=== PATIENT | female | born 1970 | race Caucasian/White ===

== ENCOUNTER 2018-08-20 15:14 | Emergency (ER) | payer OTHER ==
[~2018-08-20] VITALS: Ht 157.4 cm; Wt 45.4 kg
[~2018-08-20 15:14] MED LIST: ATARAX25 MG PO; CYMBALTA30 MG PO; DIAZEPAM10 MG PO; FIORICET 325 MG1 TAB PO; GABAPENTIN800 MG PO; HYDROCODONE BIT1 T11 PO; KEFTAB500 MG PO; LIDEX0.05% T; MOTRIN800 MG PO; NEURONTIN300 MG PO; NEURONTIN800 MG PO; PREDNICOT20 MG PO; REMERON15 M1 PO; TRAZODONE HYDRO50 MG PO; TRIMOX500 MG PO; TYLENOL325 M1 PO; VALIUM10 MG PO; VALIUM5 MG PO; VICODIN 500 MG-1 TAB PO
[2018-08-20 16:12] LABS: BASO # 0.1 10*3/uL (0.0-0.1); EOS # 0.2 10*3/uL (0.0-0.4); EOS % 2.6 % (1.0-4.0); HEMATOCRIT 39.1 % (37.0-47.0); LYMPH # 2.7 10*3/uL (1.3-4.4); LYMPH % 31.7 % (27.0-41.0); MEAN CELL VOLUME 90.7 fl (81.0-99.0); MEAN CORPUSCULAR HGB 30.2 pg (27.0-31.0); MEAN CORPUSCULAR HGB CONC 33.2 g/dl (33.0-37.0); MEAN PLATELET VOLUME 8.8 fl (9.6-12.3); MONO # 0.6 10*3/uL (0.1-1.0); MONO % 7.4 % (3.0-9.0); NEUT # 4.8 10*3/uL (2.3-7.9); NEUT % 57.1 % (47.0-73.0); PLATELET COUNT AUTOMATED 300 10*3/uL (130-400); RED BLOOD COUNT 4.31 10*6/uL (4.10-5.10); RED CELL DISTRI WIDTH 13.5 % (0-14.5); WHITE BLOOD COUNT 8.4 10*3/uL (4.8-10.8)
[2018-08-20 16:28] LABS: ALBUMIN 3.7 gm/dl (3.1-4.5); ALKALINE PHOSPHATASE 96 U/L (45-117); BUN 6 mg/dl (7-24); CHLORIDE 106 mmol/L (98-107); CREATININE 0.79 mg/dL (0.55-1.02); POTASSIUM 4.3 mmol/L (3.5-5.1); SGOT/AST 20 IU/L (3-35); SGPT/ALT 18 U/L (12-78); SODIUM 139 mmol/L (136-145); TOTAL PROTEIN 7.3 gm/dL (6.4-8.2)
[2018-08-20] MEDS ORDERED: CYCLOBENZAPRINE10 MG PO (18:46)
[2018-08-20] MEDS ORDERED: PREDNISONE50 MG PO (18:46)
== END 2018-08-20 18:57 | disposition home or self-care (01) ==
LOC: ED 15:14
PROVIDERS: Emergency Medicine
DX: M54.12 Radiculopathy, cervical region (principal); M54.6 Pain in thoracic spine; R20.0 Anesthesia of skin; J45.909 Unspecified asthma, uncomplicated; I25.2 Old myocardial infarction; F17.200 Nicotine dependence, unspecified, uncomplicated; Z88.6 Allergy status to analgesic agent

== ENCOUNTER 2020-01-01 08:55 | Emergency (ER) | payer OTHER ==
[~2020-01-01] VITALS: Ht 157.4 cm; Wt 46.3 kg
[~2020-01-01 08:55] MED LIST changes: +CYCLOBENZAPRINE10 MG PO; +PREDNISONE50 MG PO
[2020-01-01] MEDS ORDERED: PREDNISONE20 M1 PO (13:58)
== END 2020-01-01 14:34 | disposition home or self-care (01) ==
LOC: ED 08:55
DX: M25.512 Pain in left shoulder (principal); J45.909 Unspecified asthma, uncomplicated; I25.2 Old myocardial infarction; F41.9 Anxiety disorder, unspecified; Z88.8 Allergy status to other drugs, medicaments and biological substances; Z79.899 Other long term (current) drug therapy

== ENCOUNTER → 2022-07-04 | Outpatient (CLI) | payer OTHER ==
[~2022-07-04] MED LIST changes: +PREDNISONE20 M1 PO
== END ==
LOC: MAMMO 00:27
PROVIDERS: ATTEND Internal Medicine Nephrology
DX: Z12.31 Encounter for screening mammogram for malignant neoplasm of breast (principal)

== ENCOUNTER → 2025-03-11 | Outpatient (CLI) | payer OTHER | END | disposition home or self-care (01) | LOC: RESCLI 13:59 | PROVIDERS: ATTEND Internal Medicine | DX: Z00.00 Encounter for general adult medical examination without abnormal findings (principal) ==

== ENCOUNTER → 2025-04-08 | Outpatient (CLI) | payer OTHER | END | disposition home or self-care (01) | LOC: CT 13:51 | PROVIDERS: ATTEND Family Medicine | DX: Z12.2 Encounter for screening for malignant neoplasm of respiratory organs (principal); F17.210 Nicotine dependence, cigarettes, uncomplicated; I25.10 Atherosclerotic heart disease of native coronary artery without angina pectoris; R91.8 Other nonspecific abnormal finding of lung field; J43.9 Emphysema, unspecified ==

== ENCOUNTER → 2025-04-09 | Outpatient (CLI) | payer OTHER | END | disposition home or self-care (01) | LOC: MAMMO 01:12 | PROVIDERS: ATTEND Internal Medicine | DX: Z12.31 Encounter for screening mammogram for malignant neoplasm of breast (principal); R92.313 Mammographic fatty tissue density, bilateral breasts; Z00.00 Encounter for general adult medical examination without abnormal findings ==

== ENCOUNTER → 2025-04-15 | Outpatient (CLI) | payer OTHER | END | disposition home or self-care (01) | LOC: RESCLI 00:46 | PROVIDERS: ATTEND Internal Medicine | DX: H66.90 Otitis media, unspecified, unspecified ear (principal); M62.830 Muscle spasm of back; G54.2 Cervical root disorders, not elsewhere classified; F43.10 Post-traumatic stress disorder, unspecified; F17.210 Nicotine dependence, cigarettes, uncomplicated; Z79.899 Other long term (current) drug therapy; Z98.890 Other specified postprocedural states; Z88.8 Allergy status to other drugs, medicaments and biological substances ==

== ENCOUNTER → 2025-04-16 | Outpatient (CLI) | payer OTHER | END | disposition home or self-care (01) | LOC: RAD 08:19 | PROVIDERS: ATTEND Internal Medicine | DX: M51.34 Other intervertebral disc degeneration, thoracic region (principal); M47.814 Spondylosis without myelopathy or radiculopathy, thoracic region; M25.78 Osteophyte, vertebrae; M62.830 Muscle spasm of back ==